=== PATIENT | female | born 1940 | race Caucasian/White ===

== ENCOUNTER 2017-03-17 09:00 | Emergency (ER) | payer MEDICARE, BC ==
[2017-03-17] MEDS ORDERED: Sodium Chloride 0.9% 500 ML IV ONE (09:07)
[2017-03-17] MEDS ORDERED: Lidocaine 1% 20 ML MDV INJECT ONE (09:08)
[2017-03-17] MEDS ORDERED: Morphine 2 MG/ML Syringe IVPUSH ONE ×3 (09:09→11:11)
[2017-03-17] MEDS ORDERED: Lidocaine 2% Viscous Solution 15 ML Cup PO ONE (09:17)
[2017-03-17 09:36] LABS: CHLORIDE,CL 105 mmol/L (98-110); SODIUM,NA 138 mmol/L (136-146)
[2017-03-17] MEDS ORDERED: Morphine 2 MG/ML Syringe ONE (10:08)
[2017-03-17] MEDS ORDERED: Ondansetron 4 MG/2 ML SDV IVPUSH ONE (10:22)
[2017-03-17] MEDS ORDERED: Potassium Chloride 20 MEQ Tab.ER PO ONE (10:22)
[2017-03-17] MEDS ORDERED: Potassium Chloride 10% 20 MEQ/15 ML Soln 30 ML UD Cup PO ONE (10:45)
--- NOTE | 2017-03-17 10:51 | EDM.PDOC ---
[id number] Time Seen by Provider: 03/17/17 09:05 Source of Information: Reports: EMS, Family History Limitations: Reports: No Limitations - History of Present Illness INITIAL COMMENTS - FREE TEXT/NARRATIVE: History of present illness: [] She was at home when she tripped and got tangled up in her walker, with a witnessed fall by her daughter she had no loss of consciousness but sustained a laceration to her forehead. 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. EMS noted that during the 30 minute transport they noted her face started developing a hematoma. Initially sats on scene were in the 50s but increased to the mid 90s on 4 L of O2. Review of systems: As per history of present illness and below otherwise all systems reviewed and negative. Past medical history: As per history of present illness and as reviewed below otherwise noncontributory. Surgical history: As per history of present illness and as reviewed below otherwise noncontributory. Social history: No reported history of drug or alcohol abuse. Family history: As per history of present illness and as reviewed below otherwise noncontributory. Physical exam: General: Well developed, frail thin female in mild painful distress HEENT: A 2 cm laceration on the right frontal scalp, hematoma over the right eyelid, cheek and nose. , pupils reactive, negative for conjunctival pallor or scleral icterus, mucous membranes dry with blood (family states this is from her chemotherapy and not from the fall), throat clear, neck supple, diffuse tenderness without step-offs, trachea midline. Lungs: Clear to auscultation, breath sounds equal bilaterally, chest nontender. No respiratory distress or accessory muscle use Heart: S1S2, regular, negative for clicks, rubs, or JVD. Abdomen: Soft, nondistended, nontender. Negative for masses or hepatosplenomegaly. Negative for costovertebral tenderness. Pelvis: Stable nontender. Genitourinary: Deferred. Rectal: Deferred. Extremities: Atraumatic, negative for cords or calf pain. Neurovascular unremarkable. Neuro: Awake, alert. Exam nonfocal. Diagnostics: [] CT head, C-spine and face shows a small right zygoma fracture and scalp and facial hematoma, no fracture or intracranial bleed noted the C-spine is negative for fracture, patient refused a chest x-ray. Labs show marked anemia and thrombocytopenia which is chronic for this patient Therapeutics: [] Patient was given pain medicine, tetanus update, scalp wound was sutured. Impression: [] Fall with scalp laceration, anemia, thrombocytopenia, hypokalemia Plan: [] This case was discussed with Dr. Seema Etienne. recommended Transfer to [place] for transfusion of platelets and blood as we do not carry platelets at this hospital. Definitive disposition and diagnosis as appropriate pending reevaluation and review of above. head Pain Score (Numeric/FACES): 8 back Pain Score (Numeric/FACES): 8 - Related Data Allergies Allergy/AdvReac Type Severity Reaction Status Date / Time tramadol Allergy Other Verified 03/17/17 09:10 Home Meds: Home Meds Allopurinol [Zyloprim] 300 mg PO BID 03/17/17 [History] Amitriptyline HCl 100 mg PO DAILY 03/17/17 [History] Cyclobenzaprine [Flexeril] 10 mg PO TID PRN 03/17/17 [History] Furosemide 20 mg PO DAILY 03/17/17 [History] Levothyroxine [Synthroid] 100 mcg PO DAILY 03/17/17 [History] Pantoprazole [ProTONIX] 40 mg PO DAILY 03/17/17 [History] Sennosides/Docusate Sodium [Senna-Docusate Sodium Tablet] 1 each PO DAILY PRN [History] amLODIPine [Norvasc] 10 mg PO DAILY 03/17/17 [History] oxyCODONE HCl/Acetaminophen [oxyCODONE-Acetaminophen 5-325] 1 tab PO Q4HR PRN [History] Social & Family History - Tobacco Use Smoking Status *Q: Unknown Ever Smoked - Caffeine Use Caffeine Use: Reports: Coffee ED ROS GENERAL - Review of Systems Review Of Systems: See Below (See history of present illness) ED EXAM, HEAD INJURY - Physical Exam Exam: See Below (See history of present illness) Course - Vital Signs Last Recorded V/S: Last Vital Signs Temp 36.1 C 03/17/17 09:00 Pulse 109 H 03/17/17 09:00 Resp 20 03/17/17 09:00 BP 114/57 L 03/17/17 09:00 Pulse Ox 70 L 03/17/17 09:00 - Orders/Labs/Meds Orders: Active Orders 24 hr Category Date Time Status Blood Glucose Check, Bedside [RC] ONETIME Care 03/17/17 09:07 Active EKG 12 Lead [EKG Documentation Completion] [RC] ROUTINE Care 03/17/17 09:37 Active Cervical Spine wo Cont [CT] Stat Exams 03/17/17 09:06 Taken Head wo Cont [CT] Stat Exams 03/17/17 09:06 Taken Max Facial Sinus wo Cont [CT] Stat Exams 03/17/17 09:09 Taken CBC WITH AUTO DIFF [HEME] Stat Lab 03/17/17 09:00 Results Saline Lock Insert [OM.PC] Stat Oth 03/17/17 09:07 Ordered Labs: Laboratory Tests 03/17/17 03/17/17 03/17/17 Range/Units 09:00 09:00 09:00 WBC 3.57 L (4.0-11.0) K/uL RBC 2.59 L (4.30-5.90) M/uL Hgb 7.1 L (12.0-16.0) g/dL Hct 23.4 L (36.0-46.0) % MCV 90.3 (80.0-98.0) fL MCH 27.4 (27.0-32.0) pg MCHC 30.3 L (31.0-37.0) g/dL RDW Std Deviation 62.0 (28.0-62.0) fl RDW Coeff of Rosalee 19 H (11.0-15.0) % Plt Count 15 L (150-400) K/uL Add Manual Diff YES Nucleated RBC % 0.0 /100WBC Nucleated RBCs # 0 K/uL Sodium 138 (136-146) mmol/L Potassium 3.1 L (3.5-5.1) mmol/L Chloride 105 (98-110) mmol/L Carbon Dioxide 20 L (21-31) mmol/L BUN 27 H (6.0-23.0) mg/dL Creatinine 1.0 (0.6-1.5) mg/dL Est Cr Clr Drug Dosing TNP Estimated GFR (MDRD) 53.8 ml/min Glucose 107 (60-110) mg/dL Calcium 8.2 L (8.8-10.8) mg/dL Total Bilirubin 0.8 (0.1-1.5) mg/dL AST 16 (5-40) IU/L ALT 12 (8-54) IU/L Alkaline Phosphatase 90 (40-150) Troponin I 0.38 H* (0.0-0.29) NG/ML Total Protein 6.4 (6.0-8.0) g/dL Albumin 2.5 L (3.4-4.8) g/dL Globulin 3.9 H (2.0-3.5) g/dL Albumin/Globulin Ratio 0.6 L (1.3-2.8) Urine Color Urine Appearance Urine pH (5.0-8.0) Ur Specific Partridge (1.001-1.035) Urine Protein (NEGATIVE) mg/dL Urine Glucose (UA) (NEGATIVE) mg/dL Urine Ketones (NEGATIVE) mg/dL Urine Occult Blood (NEGATIVE) Urine Nitrite (NEGATIVE) Urine Bilirubin (NEGATIVE) Urine Urobilinogen (<2.0) EU/dL Ur Leukocyte Esterase (NEGATIVE) Urine RBC (0-2/HPF) Urine WBC (0-5/HPF) Ur Epithelial Cells (NONE-FEW) Urine Bacteria (NEGATIVE) 03/17/17 Range/Units 11:30 WBC (4.0-11.0) K/uL RBC (4.30-5.90) M/uL Hgb (12.0-16.0) g/dL Hct (36.0-46.0) % MCV (80.0-98.0) fL MCH (27.0-32.0) pg MCHC (31.0-37.0) g/dL RDW Std Deviation (28.0-62.0) fl RDW Coeff of Rosalee (11.0-15.0) % Plt Count (150-400) K/uL Add Manual Diff Nucleated RBC % /100WBC Nucleated RBCs # K/uL Sodium (136-146) mmol/L Potassium (3.5-5.1) mmol/L Chloride (98-110) mmol/L Carbon Dioxide (21-31) mmol/L BUN (6.0-23.0) mg/dL Creatinine (0.6-1.5) mg/dL Est Cr Clr Drug Dosing Estimated GFR (MDRD) ml/min Glucose (60-110) mg/dL Calcium (8.8-10.8) mg/dL Total Bilirubin (0.1-1.5) mg/dL AST (5-40) IU/L ALT (8-54) IU/L Alkaline Phosphatase (40-150) Troponin I (0.0-0.29) NG/ML Total Protein (6.0-8.0) g/dL Albumin (3.4-4.8) g/dL Globulin (2.0-3.5) g/dL Albumin/Globulin Ratio (1.3-2.8) Urine Color YELLOW Urine Appearance CLEAR Urine pH 7.0 (5.0-8.0) Ur Specific Partridge <= 1.005 (1.001-1.035) Urine Protein TRACE (NEGATIVE) mg/dL Urine Glucose (UA) NEGATIVE (NEGATIVE) mg/dL Urine Ketones NEGATIVE (NEGATIVE) mg/dL Urine Occult Blood NEGATIVE (NEGATIVE) Urine Nitrite NEGATIVE (NEGATIVE) Urine Bilirubin NEGATIVE (NEGATIVE) Urine Urobilinogen 0.2 (<2.0) EU/dL Ur Leukocyte Esterase NEGATIVE (NEGATIVE) Urine RBC 0-2 (0-2/HPF) Urine WBC 2-5 (0-5/HPF) Ur Epithelial Cells RARE (NONE-FEW) Urine Bacteria RARE (NEGATIVE) Meds: Medications Discontinued Medications Generic Name Dose Route Start Last Admin Trade Name Freq PRN Reason Stop Dose Admin Sodium Chloride 500 mls @ 999 mls/hr 03/17/17 09:07 03/17/17 10:05 Normal Saline IV 03/17/17 09:37 999 mls/hr .Bolus ONE Administration Lidocaine HCl 20 ml 03/17/17 09:08 03/17/17 10:15 Xylocaine 1% INJECT 03/17/17 09:09 5 ml ONETIME ONE Administration Lidocaine HCl 15 ml 03/17/17 09:17 03/17/17 09:24 Xylocaine 2% Viscous PO 03/17/17 09:18 15 ml ONETIME ONE Administration Morphine Sulfate 2 mg 03/17/17 09:09 03/17/17 09:21 Morphine IVPUSH 03/17/17 09:10 2 mg ONETIME ONE Administration Morphine Sulfate Confirm 03/17/17 10:08 03/17/17 10:35 Morphine Administered 03/17/17 10:09 Not Given Dose 2 mg .ROUTE .STK-MED ONE Morphine Sulfate 2 mg 03/17/17 10:22 03/17/17 10:09 Morphine IVPUSH 03/17/17 10:23 2 mg ONETIME ONE Administration Morphine Sulfate 2 mg 03/17/17 11:11 03/17/17 11:14 Morphine IVPUSH 03/17/17 11:12 2 mg ONETIME ONE Administration Ondansetron HCl 4 mg 03/17/17 10:22 03/17/17 10:41 Zofran IVPUSH 03/17/17 10:23 4 mg ONETIME ONE Administration Potassium Chloride 40 meq 03/17/17 10:22 03/17/17 11:12 Klor-Con M20 PO 03/17/17 10:23 Not Given ONETIME ONE Potassium Chloride 40 meq 03/17/17 10:45 03/17/17 11:08 Potassium Chloride PO 03/17/17 10:46 Not Given ONETIME ONE Departure - Departure Time of Disposition: 12:42 Disposition: Home, Self-Care 01 Condition: good Clinical Impression: Anemia, Thrombocytopenia, Hypokalemia Fall Qualifiers: Encounter type: initial encounter Qualified Code(s): W19.XXXA - Unspecified fall, initial encounter Scalp laceration Qualifiers: Encounter type: initial encounter Qualified Code(s): S01.01XA - Laceration without foreign body of scalp, initial encounter Zygomatic fracture, right side, initial encounter for closed fracture Qualifiers: Encounter type: initial encounter Qualified Code(s): S02.40EA - Zygomatic fracture, right side, initial encounter for closed fracture - Discharge Information Forms: ED Department Discharge - My Orders Last 24 Hours: My Active Orders 03/17/17 09:00 CBC WITH AUTO DIFF [HEME] Stat 03/17/17 09:06 Cervical Spine wo Cont [CT] Stat Head wo Cont [CT] Stat 03/17/17 09:07 Blood Glucose Check, Bedside [RC] ONETIME Saline Lock Insert [OM.PC] Stat 03/17/17 09:09 Max Facial Sinus wo Cont [CT] Stat 03/17/17 09:37 EKG 12 Lead [EKG Documentation Completion] [RC] ROUTINE - Assessment/Plan Last 24 Hours: My Active Orders 03/17/17 09:00 CBC WITH AUTO DIFF [HEME] Stat 03/17/17 09:06 Cervical Spine wo Cont [CT] Stat Head wo Cont [CT] Stat 03/17/17 09:07 Blood Glucose Check, Bedside [RC] ONETIME Saline Lock Insert [OM.PC] Stat 03/17/17 09:09 Max Facial Sinus wo Cont [CT] Stat 03/17/17 09:37 EKG 12 Lead [EKG Documentation Completion] [RC] ROUTINE
--- NOTE | 2017-03-18 11:21 | CT ---
EXAM DATE: 03/17/17 PATIENT'S AGE: 76 Patient: RAMA MONTAÑO Facility: [place], [place] Site . Site : 1940 Study: CT Head [id number]/11/2017 10:50:14 AM Ordering Physician: Raman Darby Final Report: INDICATION: Fall, Hit Head TECHNIQUE: Head CT without contrast. COMPARISON: None. FINDINGS: There is a right frontal scalp hematoma. No acute fractures. No sign of intracranial hemorrhage or mass effect. There is nonspecific white matter changes most consistent with chronic small vessel ischemic disease. No sign of intracranial mass or fluid collection. There is intracranial atherosclerosis. No acute sinus disease. IMPRESSION: 1. There is a right frontal scalp hematoma. No other acute findings. 2. Nonspecific white matter disease, typical of chronic small-vessel ischemic change. Dictated by: Micheal Gibson MD @ 03/17/2017 10:57:34 (Electronic Signature) Report Signed by Proxy. [facility]
--- NOTE | 2017-03-18 11:22 | CT ---
EXAM DATE: 03/17/17 PATIENT'S AGE: 76 Patient: RAMA MONTAÑO Facility: [place], [place] Site . Site : 1940 Study: CT Spine Cervical [id number]/11/2017 11:02:44 AM Ordering Physician: Raman Darby Final Report: HISTORY: Neck pain after fall. Technique: [address] images reconstructed through the cervical spine with coronal and sagittal reformations. Findings: Vertebral bodies are normal in height. There is loss of the lordotic curvature. Advanced degenerative disc space narrowing with advanced vertebral spondylosis are present at C5-6 and C6-7. There is slight anterolisthesis of C3 on 4 and C4 on 5 secondary to degenerative facet joint disease. Less advanced disc space narrowing is present C4-5. The cervical basilar relationships and prevertebral soft tissues are normal. The facets align normally and there is no fracture of the posterior elements. Multiple levels of advanced degenerative facet joint disease are present with severe facet hypertrophy on the left at C4-5 and C5-6. Interstitial density is seen in the included right lung apex. Impression: 1. No acute cervical spine fracture. 2. Multilevel degenerative disc disease greatest at C5-6 and C6-7. 3. Multiple levels of the advanced degenerative facet joint disease greatest on the left at C4-5 and C5-6. 4. Coarse interstitial density in the included right lung apex. I have no previous chest exams for comparison. Please note that all CT scans at this facility use dose modulation, iterative reconstruction, and/or weight-based dosing when appropriate to reduce radiation dose to as low as reasonably achievable. Dictated by Gary Nelson MD @ Mar 17 2017 11:12AM (Electronic Signature) Report Signed by Proxy. [facility]
--- NOTE | 2017-03-18 11:23 | CT ---
EXAM DATE: 03/17/17 PATIENT'S AGE: 76 Patient: RAMA MONTAÑO Facility: [place], [place] Site . Site : 1940 Study: CT Facial [id number]/11/2017 11:13:39 AM Ordering Physician: Raman Darby Final Report: INDICATION: Facial injury TECHNIQUE: CT maxillofacial without contrast. COMPARISON: None FINDINGS: Facial bones: There is a small irregularity in the mid aspect of the right zygomatic bone. Otherwise no sign of fracture or bone lesion. Specifically the nasal bones, temporomandibular joints, maxilla and mandible appear intact. However, there are degenerative changes in both temporomandibular joints, left greater than right. Orbits and globes: Unremarkable. Globes are intact. No sign of intraorbital hemorrhage or emphysema. Sinuses: No acute or significant findings. Soft tissues: Superficial soft tissue contusions are present in the right facial and periorbital regions. IMPRESSION: Small irregularity in the mid aspect of the right zygomatic bone could represent a fracture. No sign of fracture elsewhere. There are right-sided superficial soft tissue contusions. Dictated by Micheal Gibson MD @ 03/17/2017 11:27:39 AM Dictated by: Micheal Gibson MD @ 03/17/2017 11:27:44 (Electronic Signature) Report Signed by Proxy. [facility]
[2017-03-18 19:58] VITALS: BP 111/66
== END 2017-03-17 12:28 | disposition home or self-care (01) ==
LOC: MW.ED 09:00
DX: S02.40EA Zygomatic fracture, right side, initial encounter for closed fracture (principal); S01.01XA Laceration without foreign body of scalp, initial encounter; S00.83XA Contusion of other part of head, initial encounter; S00.33XA Contusion of nose, initial encounter; S00.11XA Contusion of right eyelid and periocular area, initial encounter; D64.9 Anemia, unspecified; D69.6 Thrombocytopenia, unspecified; E87.6 Hypokalemia; Z88.5 Allergy status to narcotic agent; Z79.899 Other long term (current) drug therapy; W01.0XXA Fall on same level from slipping, tripping and stumbling without subsequent striking against object, initial encounter; Y92.009 Unspecified place in unspecified non-institutional (private) residence as the place of occurrence of the external cause
CPT/HCPCS: 12001; 36415; 70450; 70486; 72125; 80053; 81001; 84484; 85025; 93005; 99291; 99292; A9270; J2270; J2405; J7040; 96361; 96374; 96375; 96376; 99285